=== PATIENT | female | born 1990 | race Caucasian/White ===

== ENCOUNTER 2019-10-20 11:47 | Emergency (ER) | payer OTHER ==
[~2019-10-20] VITALS: Ht 157.5 cm; Wt 40.9 kg
[2019-10-20] MEDS ORDERED: ACETAMINOPHEN 325 MG TABLET PO ONE (12:15)
[2019-10-20 13:09] VITALS: BP 96/86
== END 2019-10-20 13:26 | disposition home or self-care (01) ==
LOC: EMS 11:52
DX: S40.012A Contusion of left shoulder, initial encounter (principal); F17.210 Nicotine dependence, cigarettes, uncomplicated; F12.90 Cannabis use, unspecified, uncomplicated; Y04.2XXA Assault by strike against or bumped into by another person, initial encounter; Y93.89 Activity, other specified; Y92.89 Other specified places as the place of occurrence of the external cause; Y99.8 Other external cause status